=== PATIENT | male | born 1980 | race Caucasian/White ===

== ENCOUNTER 2023-09-17 22:30 | Emergency (ER) | payer OTHER ==
[~2023-09-17] VITALS: Ht 182.9 cm; Wt 99.8 kg
[2023-09-17] MEDS ORDERED: TORADOL IV STA ×2 (22:44→23:13)
[2023-09-17] MEDS ORDERED: TORADOL ONE ×2 (22:54→23:18)
[2023-09-17 22:56] LABS: BASOPHIL % 0.5 % (0.0-0.2); EOSINOPHIL # 0.2 10^3/uL (0.0-0.2); EOSINOPHIL % 2.9 % (0.0-5.0); HEMATOCRIT(ML) 43.6 % (37.0-53.0); LYMPHOCYTES # 2.33 10^3/uL1 (1.0-4.8); LYMPHOCYTES % 29.7 % (24.0-44.0); MEAN CORP HGB 25.6 pg (26-34); MEAN CORP HGB CONCENTRATION 32.1 g/dL (33-36.5); MEAN CORP VOLUME 79.9 fL (78-100); MONOCYTES # 0.8 10^3/uL (0.3-0.8); MONOCYTES % 10.3 % (5.0-12.0); NEUTROPHIL # 4.4 10^3/uL (1.8-7.7); NEUTROPHILS % 56.5 % (41.0-85.0); PLATELET COUNT 409 10^3/uL (150-400); RED BLOOD CELL 5.46 10^6/uL (4.50-5.90); RED CELL DISTRIBUTION WIDTH 19.8 % (11.5-14.5); WHITE BLOOD CELL 7.9 10^3/uL (4.5-11.0)
[2023-09-17 22:57] LABS: +ADD MANUAL DIFF(NO CHRG) NO
[2023-09-17 22:58] LABS: BILIRUBIN,URINE NEGATIVE (NEGATIVE); LEUKOCYTE ESTERASE ,URINE NEGATIVE (NEGATIVE); NITRATE,URINE NEGATIVE (NEGATIVE)
[2023-09-17 22:59] LABS: APPEARANCE,URINE CLOUDY; UA COLOR YELLOW
[2023-09-17 23:01] VITALS: BP 153/115; PULSE 88; RESP 22; TEMP 97.8; O2SAT 98
[2023-09-17 23:09] LABS: PROTHROMBIN PROTIME 10.7 SEC (9.7-11.6)
[2023-09-17 23:11] LABS: ALBUMIN(ML) 3.4 g/dL (3.4-5.0); ALBUMIN/GLOBULIN RATIO 0.918; ANION GAP 16.2; BUN/CREATININE RATIO 14.07 (10.0-20.0); CALCIUM 8.9 mg/dL (8.4-10.5); CARBON DIOXIDE 22.9 mmol/L (20.0-32); CREATININE SERUM 1.35 mg/dL (0.59-1.40); POTASSIUM 4.1 mmol/L (3.6-5.2)
[2023-09-17] MEDS ORDERED: OFIRMEV 1000 MG/100 ML 100 ML IV STA (23:13)
[2023-09-17] MEDS ORDERED: FLOMAX PO STA (23:13)
[2023-09-17] MEDS ORDERED: FLOMAX PO ONE (23:18)
[2023-09-17] MEDS ORDERED: OFIRMEV 1000 MG/100 ML 100 ML IV ONE (23:18)
[2023-09-17 23:25] VITALS: BP 155/89; PULSE 87; RESP 22; TEMP 97.8; O2SAT 98
== END 2023-09-17 23:28 | disposition home or self-care (01) ==
LOC: ER 22:30
DX: N20.0 Calculus of kidney (principal); Z87.442 Personal history of urinary calculi
CPT/HCPCS: 99285; 74176; 96365; 96375; 96376; 87086; 80053; 85025; 36415; 81001; 83690; 85610; 85730; J0131; J1885 ×2; J8499